=== PATIENT | male | born 1975 | race Caucasian/White ===

== ENCOUNTER 2018-06-20 05:11 | Emergency (ER) | payer SELFPAY ==
[~2018-06-20] VITALS: Ht 180.3 cm; Wt 70.3 kg
--- NOTE | 2018-06-20 05:57 | NUR ---
URINE SAMPLE COLLECTED AND SENT TO LAB
--- NOTE | 2018-06-20 06:00 | NUR ---
[id number] FROM STREETS W/ MUTLIPLE COMPLAINTS. PT STATES +SI, -HI W/ PLAN TO RUN INFRONT OF TRAFFIC. PT IS AAOX4. PT DENIES AUDITORY HALLUCINATIONS. BILATERAL FOREARM SCARS AND MINOR BLEEDING NOTED. NO S/S OF ACUTE DISTRESS NOTED. RR EVEN AND UNLABORED. PT PLACED ON MONITOR AND POX. PT SAFETY AND COMFORT MEASURES IN PLACE.
[2018-06-20 06:07] LABS: BASOPHILS % (AUTO) 0.5 % (0.0-2.0); EOSINOPHILS % (AUTO) 3.9 % (0.0-6.0); HEMATOCRIT 31 % (39-51); HEMOGLOBIN 9.4 g/dL (13.5-17.5); LYMPHOCYTES # (AUTO) 1.7 /CMM (0.8-4.8); LYMPHOCYTES % (AUTO) 35.5 % (20.0-44.0); MEAN CORPUSCULAR HGB CONC 30 g/dl (31.0-36.0); MEAN CORPUSCULAR VOLUME 66 fL (80-96); MONOCYTES # (AUTO) 0.4 /CMM (0.1-1.30); MONOCYTES % (AUTO) 8.8 % (2.0-12.0); NEUTROPHILS # (AUTO) 2.4 /CMM (1.8-8.9); NEUTROPHILS % (AUTO) 51.3 % (43.0-81.0); PLATELET COUNT (AUTO) 401 /CMM (150-450); RED BLOOD CELL COUNT(AUTO) 4.66 MIL/uL (4.5-6.0); WHITE BLOOD COUNT (AUTO) 4.7 K/uL (4.3-11.0)
[2018-06-20 06:16] LABS: CALCIUM, SERUM 8.9 mg/dL (8.5-10.1); CARBON DIOXIDE 28 mmol/L (21-32); CHLORIDE 104 mmol/L (98-107); CREATININE 0.6 mg/dL (0.6-1.3); GLUCOSE 94 mg/dL (74-106); POTASSIUM 3.6 mmol/L (3.5-5.1); SODIUM SERUM 142 mmol/L (136-145); UREA NITROGEN, BLOOD 10 mg/dL (7-18)
[2018-06-20 06:23] LABS: ALANINE AMINOTRANSFERASE 59 U/L (12-78); ALBUMIN 3.5 g/dL (3.4-5.0); ALCOHOL, BLOOD < 3 mg/dL (0-0); ALKALINE PHOSPHATASE 88 U/L (46-116); ASPARTATE AMINOTRANSFERASE 42 U/L (15-37); BILIRUBIN,DIRECT 0.1 mg/dL (0.0-0.2); BILIRUBIN,TOTAL 0.2 mg/dL (0.2-1.0); TOTAL PROTEIN, SERUM 7.9 g/dL (6.4-8.2)
[2018-06-20 06:24] LABS: SALICYLATE 1.3 mg/dL (2.8-20.0)
[2018-06-20] MEDS ORDERED: LEVETIRACETAM (500MG) 500 MG in IV NS 0.9% 100 ML IV SCH (07:00)
[2018-06-20] MEDS ORDERED: LORAZEPAM 1 MG TABLET PO ONE ×2 (07:00→08:00)
[2018-06-20] MEDS ORDERED: TDAP [DIPH/PERTUSSIS/TET] 0.5 ML VIAL IM ONE ×2 (07:00→07:31)
[2018-06-20] MEDS ORDERED: IV NS 0.9% 1,000 ML BAG IV ONE (07:00)
[2018-06-20 07:02] LABS: APPEARANCE,URINE SL CLOUDY (CLEAR); BILIRUBIN,URINE NEGATIVE (NEGATIVE); BLOOD, URINE NEGATIVE Ery/uL (NEGATIVE); COLOR,URINE YELLOW (YELLOW); KETONES,URINE NEGATIVE (NEGATIVE); LEUKOCYTE ESTERASE ,URINE NEGATIVE (NEGATIVE); NITRITE, URINE NEGATIVE (NEGATIVE); PROTEIN,URINE NEGATIVE (NEGATIVE); UGLUCOSE NEGATIVE (NEGATIVE); UROBILINOGEN,URINE 0.2 EU/dL (0.2)
--- NOTE | 2018-06-20 07:17 | NUR ---
pt refusing ct scan. dr epps notified.
[2018-06-20] MEDS ORDERED: LEVETIRACETAM (250 MG) 250 MG TABLET PO ONE ×3 (07:30→07:34)
[2018-06-20] MEDS ORDERED: LORAZEPAM 1 MG TABLET ONE ×2 (07:31→08:22)
[2018-06-20 07:33] LABS: EOSINOPHILS % (MANUAL) 2 % (0-4); LYMPHOCYTES % (MANUAL) 22 % (16-48); MONOCYTES % (MANUAL) 10 % (0-11.0); NEUTROPHILS % (MANUAL) 66 (42-76)
--- NOTE | 2018-06-20 08:02 | NUR ---
JOSE OLMEDO CALLED FOR EVAL
--- NOTE | 2018-06-20 08:02 | NUR ---
called for food tray.
--- NOTE | 2018-06-20 10:00 | NUR ---
JOSE OLMEDO AT BEDSIDE
[2018-06-20 10:15] VITALS: BP 138/68
== END 2018-06-20 11:32 | disposition home or self-care (01) ==
LOC: ER 05:13
DX: S50.812A Abrasion of left forearm, initial encounter (principal); S50.811A Abrasion of right forearm, initial encounter; F15.10 Other stimulant abuse, uncomplicated; R45.851 Suicidal ideations; D64.9 Anemia, unspecified; F32.9 Major depressive disorder, single episode, unspecified; X58.XXXA Exposure to other specified factors, initial encounter; Y93.89 Activity, other specified; Y92.89 Other specified places as the place of occurrence of the external cause; Y99.8 Other external cause status
CPT/HCPCS: 36415; 71045-TC; 80048-TC; 80076-TC; 80305; 81000-TC; 85025-TC; 85730-TC; 90715; A6402; A6403; G0480; J1953; J7030